=== PATIENT | female | born 1990 | race Caucasian/White ===

== ENCOUNTER 2025-04-05 09:54 | Outpatient (CLI) | payer OTHER, SELFPAY ==
[2025-04-05 12:42] LABS: Bacterial Vaginosis* Negative (Negative); Candida glab/krus NOT DETECTED (No Detected)
== END 2025-04-05 09:55 | disposition home or self-care (01) ==
LOC: NFLDREF 09:54
PROVIDERS: PCP Registered Nurse; Visit Provider Obstetrics & Gynecology
DX: L29.2 Pruritus vulvae (principal)
CPT/HCPCS: 81513; 87481; 87661